=== PATIENT | male | born 1995 | race African-American/Black ===

== ENCOUNTER 2023-08-27 03:07 | Emergency (ER) | payer OTHER ==
[~2023-08-27] VITALS: Ht 190.5 cm; Wt 100.0 kg
[2023-08-27 03:28] VITALS: BP 124/73; O2SAT 99
[2023-08-27] MEDS ORDERED: CLIN-116 MT (03:47)
[2023-08-27 03:57] VITALS: PULSE 76; RESP 12; TEMP 98
== END 2023-08-27 03:58 | disposition home or self-care (01) ==
LOC: ER 03:07
DX: S81.851A Open bite, right lower leg, initial encounter (principal); Z88.0 Allergy status to penicillin; Z88.2 Allergy status to sulfonamides; Z00.00 Encounter for general adult medical examination without abnormal findings; W54.0XXA Bitten by dog, initial encounter; Y93.89 Activity, other specified; Y92.89 Other specified places as the place of occurrence of the external cause; Y99.8 Other external cause status
CPT/HCPCS: 99283